=== PATIENT | female | born 1995 | race Caucasian/White ===

== ENCOUNTER 2017-05-02 16:38 | Emergency (ER) | payer SELFPAY ==
[2017-05-02] MEDS ORDERED: Ketorolac INJ* 30 MG/ML 1 ML VIAL IV PUSH ONE (16:58)
[2017-05-02] MEDS ORDERED: Morphine INJ* 4 MG/ML 1 ML SYRINGE IV ONE (17:44)
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
--- NOTE | 2017-05-02 18:47 | RAD ---
Indication: Post reduction LEFT glenohumeral joint dislocation. Comparison: Prereduction exam of the same date. Technique: Internal rotation AP, external rotation Grashey, scapular Y, axillary views LEFT shoulder Report: Normal acromioclavicular and glenohumeral joint alignment. Small posterior lateral humeral head Hill-Sachs impaction fracture. No osseous Bankart lesion evident. Unremarkable soft tissue contours. IMPRESSION: Restored glenohumeral joint alignment postreduction. Small Hill-Sachs impaction fracture.
[2017-05-02 19:08] VITALS: BP 120/71
== END 2017-05-02 19:05 | disposition home or self-care (01) ==
LOC: ED 16:38
DX: S43.005A Unspecified dislocation of left shoulder joint, initial encounter (principal); M25.512 Pain in left shoulder; W16.42XA Fall into unspecified water causing other injury, initial encounter; Y93.89 Activity, other specified; Y92.9 Unspecified place or not applicable
CPT/HCPCS: 96374; 96375; 99282; J1885; J2270